=== PATIENT | female | born 2000 | race Caucasian/White ===

== ENCOUNTER 2018-08-01 16:56 | Outpatient (CLI) | payer SELFPAY ==
[~2018-08-01] VITALS: Ht 154.9 cm; Wt 98.2 kg
--- NOTE | 2018-08-01 17:00 | NUR ---
1700-38.0 G2L1 PATIENT FROM [facility] TO UNIT WITH COMPLAINTS OF CONTRACTIONS OFF AND ON FOR SEVERAL DAYS AND FOR THE LAST HOUR HAS HAD MORE FREQUENT IRREGLUAR CONTRACTIONS. REPORTS RECENT INTERCOURSE. REVIEWED PLAN OF CARE. PLACED ON EFM, FHR REACTIVE. VSS. 1709-AMNITEST INCONCLUSIVE. SVE -3, [facility] 1713-DR. PINO UPDATED ON PATIENT, SEE PHYSICIAN NOTIFICATION. 1747-OFF EFM TO AMBULATE 1809-SVE , [facility] BY DAVID RO AND JAYJAY KRISHNA 1814-DR. PINO UPDATED ON PATIENT SVE UNCHANGED. ORDERS TO DISCHARGE HOME MAY RETURN TO [facility] AT THIS TIME.
[2018-08-01 17:30] VITALS: BP 117/70; PULSE 125; TEMP 98.2
[2018-08-01 17:35] VITALS: BP 117/70; PULSE 125; TEMP 98.2
[2018-08-01] MEDS ORDERED: PRENATAL (17:43)
[2018-08-01 17:48] VITALS: BP 119/67; PULSE 113
== END 2018-08-01 18:36 | disposition home or self-care (01) ==
LOC: LDRO 16:56
DX: O62.9 Abnormality of forces of labor, unspecified (principal); Z3A.38 38 weeks gestation of pregnancy